=== PATIENT | female | born 1950 | race Two or more races ===

== ENCOUNTER 2017-11-17 13:50 | Outpatient (CLI) | payer OTHER | END 2017-11-17 13:53 | disposition home or self-care (01) | LOC: RAD 13:50 | DX: R07.89 Other chest pain (principal) ==

== ENCOUNTER 2018-04-13 12:01 | Outpatient (CLI) | payer OTHER | END 2018-04-13 16:09 | disposition home or self-care (01) | LOC: RAD 501 12:01 | DX: M70.62 Trochanteric bursitis, left hip (principal) ==

== ENCOUNTER 2019-02-13 13:28 | Outpatient (CLI) | payer OTHER | END 2019-02-13 13:36 | disposition home or self-care (01) | LOC: MRI 13:28 | DX: M54.12 Radiculopathy, cervical region (principal) | CPT/HCPCS: 72141 ==